=== PATIENT | female | born 1995 | race Caucasian/White ===

== ENCOUNTER 2021-03-04 11:17 | Inpatient (IN) | payer BC, SELFPAY ==
[2021-03-04] VITALS (112 sets, daily range): BP systolic 117–185; BP diastolic 66–130; PULSE 51–92; RESP 12–18; TEMP 36.1–36.7; O2SAT 80–98; BMI 41.3
[2021-03-04 11:16] LABS: Hematocrit 32.7 % (37-47); Hemoglobin 11.1 g/dL (12.0-15.0); Mean Corp Hgb Conc 33.9 g/dL (32-36); Mean Corpuscular Hgb 29.1 pg (27.0-32.0); Mean Corpuscular Volume 85.6 fL (81-99); Mean Platelet Vol. 10.8 fl (6.2-12.0); Platelet Count 198 K/mm3 (150-450); RBC Distribution Width CV 13.6 % (11.6-14.6); RBC Distribution Width SD 42.1 fl (35.1-43.9); Red Blood Count 3.82 M/mm3 (4.2-5.4); White Blood Count 8.1 K/mm3 (4.4-11.0)
[2021-03-04 11:29] LABS: AST(SGOT) 28 U/L (15-37); Alanine Aminotransfer ALT/SGPT 22 U/L (13-56); Creatinine, Serum 0.71 mg/dL (0.55-1.02); EST Glomerular Filtration Rate 105 mL/min (>60); Est Glom Filt Rate - Afr Amer 127 mL/min (>60); Estimated Creatinine Clearance 111.42 ml/min; Protein, Urine (Random) 130.1 mg/dL (<11.9); Protein:Creat Ratio 2059 mg/g CRE (0-200); Uric Acid 6.8 mg/dL (2.6-6.0)
[2021-03-04] MEDS: Labetalol (Prefilled) 20 MG/4 ML IV (11:41)
[2021-03-04] MEDS: Magnesium Sulfate 4gm/100mL 4 GM/100 ML IV.SOLN. IV (11:46)
[2021-03-04] MEDS: Lactated Ringers 1,000 ML 15 ML IV (11:52)
[2021-03-04] MEDS: Magnesium Sulfate 4gm/100mL 2 GM/50 ML IV.SOLN. IV (12:04)
[2021-03-04] MEDS: Magnesium Sulfate 20 GM/500 ML BAG IV ×2 (12:16→22:52)
[2021-03-04] MEDS: miSOPROStol 25 MCG TABLET VAGINAL (12:37)
[2021-03-04] MEDS: Labetalol (Prefilled) 20 MG/4 ML 40 MG IV (12:52)
[2021-03-04] MEDS: Labetalol 100 MG/20 ML Vial 80 MG IV (13:22)
[2021-03-04] MEDS: hydrALAZINE 20 MG/ML Vial 10 MG IV (13:47)
[2021-03-04] MEDS: hydrALAZINE 10 MG Tablet 20 MG PO ×2 (15:12→21:31)
[2021-03-04] MEDS: NIFEdipine 10 MG Capsule PO (15:59)
[2021-03-04] MEDS: Acetaminophen 500 MG Tablet PO (16:00)
--- NOTE | 2021-03-04 17:07 | HP.PCM.OB_ITS ---
HPI - General General Date of Admission: 03/04/21 Date of Service: 03/04/21 Chief Complaint: high blood pressure HPI Narrative ALEXIA GAGE, 25-year-old 1 para 0 who presents at 36 weeks with EDC of 04/01/2021 with complaint of high blood pressure. She was seen in the office today and noted to have significantly elevated blood pressure. She was sent to labor and delivery for evaluation. She had a mild headache earlier it was decreased with Tylenol. She denies any visual changes or epigastric pain. She is had some significant edema. Maternal Data Information Final JHONNY: 04/01/21 Gestational age: 34 PFSH PFSH Home Medications aspirin [Aspir-Low] 81 mg PO DAILY 03/04/21 [History Last Taken 03/03/21] [id number] [] 1 tab PO DAILY 03/04/21 [History Last Taken Unknown] Allergy/AdvReac Type Severity Reaction Status Date / Time No Known Allergies Allergy Verified 03/04/21 11:07 Social History Smoking Status: Former smoker History Elective abortions Hx Para 0 Spontaneous abortions Hx # Term Pregnancies Ectopic pregnancies Hx # Pregnancies Multiple births # of living children ROS Constitutional Constitutional: Denies fatigue, fever(s) or malaise Eyes Eyes: Denies change in vision ENT HEENT: Reports headache(s); Denies dizziness Cardiovascular Cardiovascular: Denies chest pain, dyspnea or lightheadedness Respiratory/Chest Respiratory/Chest: Denies cough or dyspnea Gastrointestinal Gastrointestinal: Denies change in bowel habits Genitourinary Genitourinary: Denies burning urination or genital lesions Integumentary Integumentary: Denies rash Neurologic Neurologic: Denies confusion, dizziness, headache(s), numbness or weakness Vital Signs Vital Signs Vital Signs: 03/04/21 11:15 03/04/21 11:16 03/04/21 11:29 Temperature Temperature Source Pulse Rate 54 L 51 L 54 L Respiratory Rate Respiratory Effort Respiratory Depth Respiratory Pattern Blood Pressure 185/107 H 169/99 H 160/100 H Blood Pressure Mean BP Systolic 185 169 160 BP Diastolic 107 99 100 Blood Pressure Source Blood Pressure Position Blood Pressure Location Pulse Ox Oxygen Delivery Method 03/04/21 11:49 03/04/21 11:54 03/04/21 11:55 Temperature Temperature Source Pulse Rate 58 L 60 60 Respiratory Rate 14 Respiratory Effort Normal Respiratory Depth Normal Respiratory Pattern Normal Blood Pressure 145/91 H Blood Pressure Mean 109 BP Systolic 145 BP Diastolic 91 Blood Pressure Source Monitor Blood Pressure Position Blood Pressure Location Pulse Ox 96 96 97 Oxygen Delivery Method Room Air 03/04/21 11:59 03/04/21 12:04 03/04/21 12:05 Temperature Temperature Source Pulse Rate 64 61 Respiratory Rate 14 Respiratory Effort Respiratory Depth Respiratory Pattern Blood Pressure 158/97 H Blood Pressure Mean 117 BP Systolic 158 BP Diastolic 97 Blood Pressure Source Monitor Blood Pressure Position Blood Pressure Location Pulse Ox 96 95 97 Oxygen Delivery Method Room Air 03/04/21 12:09 03/04/21 12:11 03/04/21 12:14 Temperature Temperature Source Pulse Rate 63 66 60 Respiratory Rate Respiratory Effort Normal Respiratory Depth Respiratory Pattern Blood Pressure 143/95 H Blood Pressure Mean BP Systolic 143 BP Diastolic 95 Blood Pressure Source Blood Pressure Position Blood Pressure Location Pulse Ox 96 94 96 Oxygen Delivery Method 03/04/21 12:15 03/04/21 12:19 03/04/21 12:24 Temperature Temperature Source Pulse Rate 66 65 55 L Respiratory Rate 14 Respiratory Effort Respiratory Depth Respiratory Pattern Blood Pressure 143/95 H 155/104 H Blood Pressure Mean 111 BP Systolic 155 BP Diastolic 104 Blood Pressure Source Monitor Blood Pressure Position Supine Blood Pressure Location Right Forearm Pulse Ox 97 97 Oxygen Delivery Method Room Air 03/04/21 12:25 03/04/21 12:26 03/04/21 12:29 Temperature Temperature Source Pulse Rate 55 L 76 Respiratory Rate 14 Respiratory Effort Respiratory Depth Respiratory Pattern Blood Pressure 155/104 H Blood Pressure Mean 121 BP Systolic BP Diastolic Blood Pressure Source Monitor Blood Pressure Position Semi-Fowlers Blood Pressure Location Right Arm Pulse Ox 97 80 96 Oxygen Delivery Method Room Air 03/04/21 12:34 03/04/21 12:35 03/04/21 12:39 Temperature Temperature Source Pulse Rate 54 L 61 60 Respiratory Rate 16 Respiratory Effort Normal Respiratory Depth Respiratory Pattern Blood Pressure 159/102 H 159/102 H Blood Pressure Mean 121 BP Systolic 159 BP Diastolic 102 Blood Pressure Source Monitor Blood Pressure Position Supine Blood Pressure Location Pulse Ox 96 97 97 Oxygen Delivery Method Room Air 03/04/21 12:40 03/04/21 12:44 03/04/21 12:45 Temperature 97.8 F Temperature Source Temporal Pulse Rate 73 56 L 56 L Respiratory Rate Respiratory Effort Respiratory Depth Respiratory Pattern Blood Pressure 162/91 H Blood Pressure Mean BP Systolic 162 BP Diastolic 91 Blood Pressure Source Blood Pressure Position Blood Pressure Location Pulse Ox 92 97 Oxygen Delivery Method 03/04/21 12:49 03/04/21 12:54 03/04/21 12:59 Temperature Temperature Source Pulse Rate 68 61 68 Respiratory Rate Respiratory Effort Respiratory Depth Respiratory Pattern Blood Pressure Blood Pressure Mean BP Systolic BP Diastolic Blood Pressure Source Blood Pressure Position Blood Pressure Location Pulse Ox 95 96 97 Oxygen Delivery Method 03/04/21 13:04 03/04/21 13:09 03/04/21 13:11 Temperature Temperature Source Pulse Rate 65 59 L 62 Respiratory Rate Respiratory Effort Respiratory Depth Respiratory Pattern Blood Pressure 159/95 H Blood Pressure Mean BP Systolic 159 BP Diastolic 95 Blood Pressure Source Blood Pressure Position Blood Pressure Location Pulse Ox 96 97 Oxygen Delivery Method 03/04/21 13:12 03/04/21 13:14 03/04/21 13:19 Temperature Temperature Source Pulse Rate 61 64 63 Respiratory Rate 16 16 Respiratory Effort Respiratory Depth Respiratory Pattern Blood Pressure 159/95 H 162/102 H Blood Pressure Mean 116 122 BP Systolic 162 BP Diastolic 102 Blood Pressure Source Monitor Monitor Blood Pressure Position Blood Pressure Location Pulse Ox 97 97 97 Oxygen Delivery Method Room Air Room Air 03/04/21 13:24 03/04/21 13:29 03/04/21 13:34 Temperature Temperature Source Pulse Rate 61 67 68 Respiratory Rate Respiratory Effort Respiratory Depth Respiratory Pattern Blood Pressure Blood Pressure Mean BP Systolic BP Diastolic Blood Pressure Source Blood Pressure Position Blood Pressure Location Pulse Ox 96 96 97 Oxygen Delivery Method 03/04/21 13:41 03/04/21 13:46 03/04/21 13:47 Temperature Temperature Source Pulse Rate 57 L 60 60 Respiratory Rate 16 Respiratory Effort Normal Respiratory Depth Normal Respiratory Pattern Normal Blood Pressure 160/101 H 160/101 H Blood Pressure Mean 120 BP Systolic 160 BP Diastolic 101 Blood Pressure Source Monitor Blood Pressure Position Blood Pressure Location Pulse Ox 97 96 Oxygen Delivery Method Room Air 03/04/21 13:51 03/04/21 13:56 03/04/21 14:01 Temperature Temperature Source Pulse Rate 61 68 68 Respiratory Rate Respiratory Effort Respiratory Depth Respiratory Pattern Blood Pressure Blood Pressure Mean BP Systolic BP Diastolic Blood Pressure Source Blood Pressure Position Blood Pressure Location Pulse Ox 97 97 97 Oxygen Delivery Method 03/04/21 14:06 03/04/21 14:11 03/04/21 14:13 Temperature Temperature Source Pulse Rate 77 65 65 Respiratory Rate Respiratory Effort Respiratory Depth Respiratory Pattern Blood Pressure 157/130 H Blood Pressure Mean BP Systolic 157 BP Diastolic 130 Blood Pressure Source Blood Pressure Position Blood Pressure Location Pulse Ox 97 96 Oxygen Delivery Method 03/04/21 14:16 03/04/21 14:21 03/04/21 14:26 Temperature Temperature Source Pulse Rate 70 62 59 L Respiratory Rate 14 Respiratory Effort Respiratory Depth Respiratory Pattern Blood Pressure 140/79 H Blood Pressure Mean 99 BP Systolic 140 BP Diastolic 79 Blood Pressure Source Monitor Blood Pressure Position Blood Pressure Location Pulse Ox 97 96 96 Oxygen Delivery Method Venturi Mask 03/04/21 14:28 03/04/21 14:31 03/04/21 14:36 Temperature Temperature Source Pulse Rate 60 60 65 Respiratory Rate 14 Respiratory Effort Normal Respiratory Depth Normal Respiratory Pattern Normal Blood Pressure 142/97 H 142/97 H Blood Pressure Mean 112 BP Systolic 142 BP Diastolic 97 Blood Pressure Source Monitor Blood Pressure Position Blood Pressure Location Pulse Ox 97 97 Oxygen Delivery Method Room Air 03/04/21 14:38 03/04/21 14:41 03/04/21 14:46 Temperature Temperature Source Pulse Rate 62 69 60 Respiratory Rate 14 Respiratory Effort Normal Respiratory Depth Normal Respiratory Pattern Normal Blood Pressure 142/87 H Blood Pressure Mean 105 BP Systolic 142 BP Diastolic 87 Blood Pressure Source Monitor Blood Pressure Position Blood Pressure Location Pulse Ox 98 96 96 Oxygen Delivery Method Room Air 03/04/21 14:48 03/04/21 14:51 03/04/21 14:56 Temperature Temperature Source Pulse Rate 60 64 63 Respiratory Rate 16 Respiratory Effort Respiratory Depth Respiratory Pattern Blood Pressure 140/91 H Blood Pressure Mean 107 BP Systolic 140 BP Diastolic 91 Blood Pressure Source Monitor Blood Pressure Position Blood Pressure Location Pulse Ox 98 97 98 Oxygen Delivery Method Room Air 03/04/21 14:58 03/04/21 15:05 03/04/21 15:07 Temperature Temperature Source Pulse Rate 61 77 63 Respiratory Rate 16 Respiratory Effort Respiratory Depth Respiratory Pattern Blood Pressure 132/86 H Blood Pressure Mean 101 BP Systolic 132 BP Diastolic 86 Blood Pressure Source Monitor Blood Pressure Position Blood Pressure Location Pulse Ox 97 97 90 Oxygen Delivery Method Room Air 03/04/21 15:08 03/04/21 15:09 03/04/21 15:10 Temperature Temperature Source Pulse Rate 65 75 71 Respiratory Rate 16 Respiratory Effort Respiratory Depth Respiratory Pattern Blood Pressure 158/97 H 158/97 H Blood Pressure Mean 117 BP Systolic 158 BP Diastolic 97 Blood Pressure Source Monitor Blood Pressure Position Blood Pressure Location Pulse Ox 97 96 Oxygen Delivery Method Room Air 03/04/21 15:12 03/04/21 15:15 03/04/21 15:20 Temperature Temperature Source Pulse Rate 67 64 65 Respiratory Rate Respiratory Effort Respiratory Depth Respiratory Pattern Blood Pressure 158/97 H Blood Pressure Mean BP Systolic BP Diastolic Blood Pressure Source Blood Pressure Position Blood Pressure Location Pulse Ox 97 96 Oxygen Delivery Method 03/04/21 15:24 03/04/21 15:25 03/04/21 15:30 Temperature Temperature Source Pulse Rate 60 61 67 Respiratory Rate 16 Respiratory Effort Respiratory Depth Respiratory Pattern Blood Pressure 149/96 H 149/96 H Blood Pressure Mean 113 BP Systolic 149 BP Diastolic 96 Blood Pressure Source Monitor Blood Pressure Position Blood Pressure Location Pulse Ox 96 98 Oxygen Delivery Method Room Air 03/04/21 15:35 03/04/21 15:40 03/04/21 15:41 Temperature Temperature Source Pulse Rate 61 65 64 Respiratory Rate Respiratory Effort Respiratory Depth Respiratory Pattern Blood Pressure 169/97 H 156/97 H Blood Pressure Mean BP Systolic 169 156 BP Diastolic 97 97 Blood Pressure Source Blood Pressure Position Blood Pressure Location Pulse Ox 96 96 Oxygen Delivery Method 03/04/21 15:43 03/04/21 15:45 03/04/21 15:50 Temperature Temperature Source Pulse Rate 67 64 78 Respiratory Rate 18 Respiratory Effort Respiratory Depth Respiratory Pattern Blood Pressure 156/97 H Blood Pressure Mean 116 BP Systolic BP Diastolic Blood Pressure Source Monitor Blood Pressure Position Blood Pressure Location Pulse Ox 98 97 96 Oxygen Delivery Method Room Air 03/04/21 15:56 03/04/21 15:59 03/04/21 16:00 Temperature 97.8 F Temperature Source Temporal Pulse Rate 63 62 Respiratory Rate 15 Respiratory Effort Respiratory Depth Respiratory Pattern Blood Pressure 165/98 H 156/95 H 156/95 H Blood Pressure Mean 120 115 BP Systolic 165 156 BP Diastolic 98 95 Blood Pressure Source Monitor Monitor Blood Pressure Position Blood Pressure Location Pulse Ox 98 97 Oxygen Delivery Method Room Air Room Air 03/04/21 16:01 03/04/21 16:06 03/04/21 16:11 Temperature Temperature Source Pulse Rate 61 62 61 Respiratory Rate Respiratory Effort Respiratory Depth Respiratory Pattern Blood Pressure Blood Pressure Mean BP Systolic BP Diastolic Blood Pressure Source Blood Pressure Position Blood Pressure Location Pulse Ox 97 96 97 Oxygen Delivery Method 03/04/21 16:15 03/04/21 16:16 03/04/21 16:17 Temperature Temperature Source Pulse Rate 88 89 Respiratory Rate Respiratory Effort Respiratory Depth Respiratory Pattern Blood Pressure 122/66 H Blood Pressure Mean BP Systolic 122 BP Diastolic 66 Blood Pressure Source Blood Pressure Position Blood Pressure Location Pulse Ox 94 93 Oxygen Delivery Method 03/04/21 16:19 03/04/21 16:20 03/04/21 16:21 Temperature Temperature Source Pulse Rate 92 91 87 Respiratory Rate 16 Respiratory Effort Respiratory Depth Respiratory Pattern Blood Pressure 122/66 H Blood Pressure Mean 84 BP Systolic BP Diastolic Blood Pressure Source Monitor Blood Pressure Position Blood Pressure Location Pulse Ox 94 94 93 Oxygen Delivery Method Room Air 03/04/21 16:26 03/04/21 16:31 03/04/21 16:32 Temperature Temperature Source Pulse Rate 86 79 80 Respiratory Rate 16 16 Respiratory Effort Respiratory Depth Respiratory Pattern Blood Pressure 126/71 H 128/72 H 128/72 H Blood Pressure Mean 89 90 BP Systolic 126 128 BP Diastolic 71 72 Blood Pressure Source Monitor Monitor Blood Pressure Position Blood Pressure Location Pulse Ox 93 94 94 Oxygen Delivery Method Room Air Room Air 03/04/21 16:36 03/04/21 16:41 03/04/21 16:46 Temperature Temperature Source Pulse Rate 74 80 75 Respiratory Rate Respiratory Effort Respiratory Depth Respiratory Pattern Blood Pressure Blood Pressure Mean BP Systolic BP Diastolic Blood Pressure Source Blood Pressure Position Blood Pressure Location Pulse Ox 95 95 94 Oxygen Delivery Method 03/04/21 16:51 03/04/21 16:56 03/04/21 17:01 Temperature Temperature Source Pulse Rate 77 71 76 Respiratory Rate Respiratory Effort Respiratory Depth Respiratory Pattern Blood Pressure Blood Pressure Mean BP Systolic BP Diastolic Blood Pressure Source Blood Pressure Position Blood Pressure Location Pulse Ox 95 94 96 Oxygen Delivery Method 03/04/21 17:03 Temperature Temperature Source Pulse Rate 77 Respiratory Rate Respiratory Effort Respiratory Depth Respiratory Pattern Blood Pressure 149/89 H Blood Pressure Mean BP Systolic 149 BP Diastolic 89 Blood Pressure Source Blood Pressure Position Blood Pressure Location Pulse Ox Oxygen Delivery Method Weight Weight: 116.3 kg Body Mass Index (BMI) 41.3 Physical Exam Narrative Ext 2+ edema Const alert and no apparent distress General Appearance: cooperative HEENT normocephalic Resp normal respiratory effort Cardio regular rate GI soft to palpation GI Narrative: gravid, nontender, appropriate for gestational age Extremity no calf tenderness General Extremity: edema Skin no wounds Rashes: No rashes noted Psych activity/motor behavior normal Labs Labs Labs: Blood Type O NEGATIVE Antibody Screen NEGATIVE Hct 32.7 % (37-47) L Hgb 11.1 g/dL (12.0-15.0) L Assessment & Plan (1) 36 weeks gestation of : PLAN: Patient with preeclampsia with severe features. Have initiated the hypertensive protocols. Maxed out on labetalol and needed IV hydralazine. Then given nifedipine. Now blood pressures more stable. However there is minimal variability in the heart rate with some decelerations. She is remote from delivery. I discussed with patient risk benefits and alternatives to a section. Recommend we proceed with section to expedite delivery due to her severe preeclampsia and difficulty controlling blood pressures. In addition fetus is already having D cells and we are not in active labor. Patient's quest ions were answered to her satisfaction she desires to proceed. Patient is on magnesium prophylaxis. (2) High-risk in third trimester: (3) Preeclampsia, severe: (4) Maternal obesity syndrome in third trimester: (5) Body mass index (BMI) of 40.1 to 44.9 in adult:
[2021-03-04] MEDS: Sodium Citrate/Citric Acid 30 ML UDC PO (17:09)
--- NOTE | 2021-03-04 18:00 | EX.PCM.OBRPT ---
Assessment & Plan (1) Body mass index (BMI) of 40.1 to 44.9 in adult: (2) Maternal obesity syndrome in third trimester: (3) Preeclampsia, severe: (4) High-risk in third trimester: (5) 36 weeks gestation of : Maternal Data Information Final JHONNY: 04/01/21 Gestational age: 36 0/7 Details Operative Information Date of Procedure: 03/04/21 Pre-Operative Diagnosis: severe preeclampsia, 36 weeks, decelerations Post-Operative Diagnosis: same Classification: JOSE ANGEL Procedure Type: low transverse activity assistant #1: Arely Floyd Type of Anesthesia: Spinal Anesthesiologist: Alber Melendrez Antibiotic Given: Ancef 2 grams IV x1 Drain: Kramer to straight drain Estimated Blood Loss: 900 Fluids Replaced: 1500 Procedure Start Time: 17:36 Procedure Stop Time: 18:06 Time of Delivery: 17:38 Findings Description of Procedure: The patient was taken to the operating room. She was prepped and draped in the dorsal supine position with a leftward tilt. A Pfannenstiel skin incision was made approximately 2 cm above the symphysis pubis and carried through to underlying layer fascia with the scalpel. The fascia was incised incised in the midline and extended laterally with t blunt dissection. The fascia was dissected off the rectus muscles superiorly with blunt dissection. The rectus muscles were in the midline and the peritoneum was entered [bluntly]. The peritoneal incision was stretched and the bladder blade was placed. The uterine incision was made in a low transverse fashion with the scalpel and extended superiorly and inferiorly with blunt dissection. [The amniotic membranes were ruptured bluntly and clear amniotic fluid returned]. The infant's head was brought to the incision in the flexed position and delivered without difficulty. The remainder of the infant was delivered with gentle traction and fundal pressure in the standard fashion. The mouth and nares were bulb suctioned. The cord was clamped and cut as the was stimulated. [Cord clamping was delayed]. The infant was handed off to the waiting nursing staff. The placenta was delivered with fundal massage and gentle traction in the standard fashion. The uterus was exteriorized and cleared of all clots and debris. [The cervix was dilated with a ring forcep]. The uterine incision was closed with #1 Vicryl in a running locked fashion. A second layer of the same suture was used in an imbricating fashion. Several 0 Vicryl [id number] stitch sutures were needed in the incision and some sinuses to obtain hemostasis. The incision was examined and was found to be hemostatic. The uterus was placed back into the peritoneal cavity and hemostasis was again confirmed. Some Shahla was placed over the incision. The rectus muscles were examined and any bleeding was Bovie cauterized. The parietal peritoneum and rectus muscles were closed en bloc with an 0 Vicryl running suture. The surgical teams outer gloves were then changed. The rectus fascia was examined and any bleeding was Bovie cauterized and the rectus fascia was closed with 0 PDS suture in a running standard fashion. The subcutaneous tissue was examining and any bleeding was Bovie cauterized. The subcutaneous tissue was reapproximated with 3-0 Vicryl suture. The skin was closed in a subcuticular fashion by the CREDIT CONTROL OFFICER with me present in the labor and delivery suite. I performed the remainder of the procedure with assistance. All sponge, lap, and needle counts were correct. The patient was taken to her room for recovery in a stable condition. Amniotic Membrane Rupture Type: Artificial Amniotic Fluid Description: Clear Placental Delivery Description: Expressed Placenta Disposition: [facility] Cord Vessel Description: 3 Vessels Cord Entanglement: Around neck x 1, loose Nuchal Cord Compression: Without compression Cord Gases: ABG and VBG Infant A Gender: Male (Juanpablo 5lb 14 oz) (1 minute): 8 (5 minute): 9 Delayed Cord Clamping: Yes Complications Complications: none Admit VTE Documentation VTE Present on Admission: Yes VTE Mechan Device Prophylaxis: SCD's VTE Pharm Prophylaxis Ordered: Yes
[2021-03-04] MEDS: Oxytocin 30 units/NS 500 ml 30 UNITS/500 ML IV.SOLN 167 UNITS IV (18:30)
[2021-03-04] MEDS: Ketorolac 30 MG/ML Syringe IV (19:06)
--- NOTE | 2021-03-04 20:20 | NURSING ---
report given to franchesca WELSH.
[2021-03-04] MEDS: Acetaminophen 500 MG Tablet 1000 MG PO (21:30)
[2021-03-04] MEDS: Lactated Ringers 1,000 ML 100 ML IV (21:32)
[2021-03-04] MEDS: Ondansetron 4 MG/2 ML Vial IV (22:52)
[2021-03-04] MEDS: 0.9% Saline Lock 10 ML Syringe IV (22:52)
[2021-03-05] VITALS (27 sets, daily range): BP systolic 125–187; BP diastolic 76–102; PULSE 52–90; RESP 16–18; TEMP 36.1–36.9; O2SAT 87–98
[2021-03-05] MEDS: Ketorolac 30 MG/ML Syringe IV ×3 (01:33→14:04)
[2021-03-05] MEDS: proCHLORPERazine 10 MG/2 ML Vial IV ×2 (01:54→10:16)
[2021-03-05] MEDS: 0.9% Saline Lock 10 ML Syringe IV ×2 (01:54→07:54)
[2021-03-05] MEDS: Acetaminophen 500 MG Tablet 1000 MG PO ×4 (04:40→22:09)
[2021-03-05] MEDS: Enoxaparin 40 MG/0.4 ML Syringe SC ×2 (05:28→17:03)
[2021-03-05 05:43] LABS: Hematocrit 29.6 % (37-47); Hemoglobin 9.8 g/dL (12.0-15.0); Mean Corp Hgb Conc 33.1 g/dL (32-36); Mean Corpuscular Hgb 29.1 pg (27.0-32.0); Mean Corpuscular Volume 87.8 fL (81-99); Mean Platelet Vol. 10.3 fl (6.2-12.0); Platelet Count 206 K/mm3 (150-450); RBC Distribution Width SD 44.1 fl (35.1-43.9); Red Blood Count 3.37 M/mm3 (4.2-5.4); White Blood Count 11.2 K/mm3 (4.4-11.0)
[2021-03-05] MEDS: hydrALAZINE 10 MG Tablet 20 MG PO ×2 (06:36→14:04)
[2021-03-05] MEDS: Lactated Ringers 1,000 ML 100 ML IV ×2 (06:54→16:56)
[2021-03-05] MEDS: Magnesium Sulfate 20 GM/500 ML BAG IV (08:17)
--- NOTE | 2021-03-05 08:50 | PCM.PN.OB ---
Subjective Subjective Denies complaints other than feels off from the Mag. She is slowly feeling better. Objective Data Objective Data Vital Signs: Vital Signs Temp Pulse Resp BP Pulse Ox 98.2 F 88 16 138/82 H 98 03/05/21 08:00 03/05/21 08:00 03/05/21 08:00 03/05/21 08:00 03/05/21 08:00 Oxygen Delivery Method Room Air Weight: 256 lb 6.362 oz Body Mass Index (BMI) 41.3 Intake & Output: Intake and Output for Last 24 Hours 03/03/21 03/04/21 03/05/21 23:59 23:59 23:59 Intake Total 2480.5 / 2480.5 1707.50 / 1707.50 Output Total 1800 / 1800 350 / 350 Balance 680.5 / 680.5 1357.50 / 1357.50 Lab / Micro Data Result Diagrams: 03/05/21 05:33 03/04/21 11:05 Labs: Laboratory Results - last 24 hr 03/04/21 11:05: WBC 8.1, RBC 3.82 L, Hgb 11.1 L, Hct 32.7 L, MCV 85.6, MCH 29.1, MCHC 33.9, RDW Std Deviation 42.1, RDW Coeff of Katharine 13.6, Plt Count 198, MPV 10.8 03/04/21 11:05: U Random Total Protein 130.1 H, Urine Creatinine 63.20, Protein/Creatinin Ratio 2059 H 03/04/21 11:05: Creatinine 0.71, Estim Creat Clear Calc 111.42, Est GFR (MDRD) Af Amer 127, Est GFR (MDRD) Non-Af 105, Uric Acid 6.8 H, AST 28, ALT 22 03/04/21 11:05: Blood Type O NEGATIVE, Antibody Screen TNP 03/04/21 11:05: Antibody Screen NEGATIVE 03/05/21 05:33: WBC 11.2 H, RBC 3.37 L, Hgb 9.8 L, Hct 29.6 L, MCV 87.8, MCH 29.1, MCHC 33.1, RDW Std Deviation 44.1 H, RDW Coeff of Katharine 14.0, Plt Count 206, MPV 10.3 Micro: Microbiology 12/16/21 11:10 Nasal Secretion SARS-CoV-2 Antigen (Rapid) - Final Physical Exam Const alert, oriented x3 and no apparent distress HEENT normocephalic GI soft to palpation, non-tender and non-distended GI Narrative: fundus firm, mid & below umbilicus Incision - bandage c/d/i Extremity normal to inspection and no calf tenderness Assessment & Plan (1) Preeclampsia, severe: COMMENT: POD#1 PLAN: Heme - HDS, cbc reviewed & hb=9.8 ID - AF, no signs infection Severe prE - continue mag for 24 hours. Bp's well controlled on TID hydralazine GI - ADAT - - no issues Routine PP care
[2021-03-05] MEDS: Senna/Docusate Sodium 1 Tablet PO (10:57)
[2021-03-05] MEDS: NIFEdipine 30 MG Tablet PO (18:06)
[2021-03-05] MEDS: NIFEdipine 10 MG Capsule 20 MG PO (20:44)
[2021-03-05] MEDS: Naproxen 500 MG Tablet PO (22:06)
[2021-03-05] MEDS: hydrALAZINE 10 MG Tablet 40 MG PO (22:07)
[2021-03-06] VITALS (17 sets, daily range): BP systolic 137–168; BP diastolic 81–99; PULSE 69–113; RESP 16–20; TEMP 36.7–37.2; O2SAT 94–98
[2021-03-06] MEDS: oxyCODONE 5 MG Tablet PO (01:44)
[2021-03-06] MEDS: Acetaminophen 500 MG Tablet 1000 MG PO ×4 (04:17→22:20)
[2021-03-06] MEDS: Enoxaparin 40 MG/0.4 ML Syringe SC ×2 (06:08→18:05)
[2021-03-06] MEDS: hydrALAZINE 10 MG Tablet 40 MG PO ×2 (06:08→14:12)
[2021-03-06] MEDS: Naproxen 500 MG Tablet PO ×3 (06:08→22:20)
--- NOTE | 2021-03-06 08:09 | PCM.PN.OB ---
Subjective Subjective Patient seen at bedside, doing well. Patient reports good pain control. Mild lochia. Patient reports bottlefeeding. Denies any headaches, visual changes, chest pain, shortness of breath. Voiding without difficulty. Passing flatus. Tolerating regular diet. Objective Data Objective Data Vital Signs: Vital Signs Temp Pulse Resp BP Pulse Ox 98.4 F 69 18 148/94 H 94 03/06/21 04:15 03/06/21 06:08 03/06/21 04:15 03/06/21 06:08 03/06/21 04:15 Oxygen Delivery Method Room Air Weight: 116.3 kg Body Mass Index (BMI) 41.3 Intake & Output: Intake and Output for Last 24 Hours 03/04/21 03/05/21 03/06/21 23:59 23:59 23:59 Intake Total 2480.5 / 2480.5 3599.17 / 3599.17 Output Total 1800 / 1800 1750 / 1750 Balance 680.5 / 680.5 1849.17 / 1849.17 Lab / Micro Data Result Diagrams: 03/05/21 05:33 03/04/21 11:05 Micro: Microbiology 03/04/21 11:10 Nasal Secretion SARS-CoV-2 Antigen (Rapid) - Final Physical Exam Narrative Dressing is dry and intact. Fundus is firm. +1 lower extremity edema. Const alert and oriented x3 General Appearance: cooperative HEENT normocephalic Neck General: normal visual inspection GI soft to palpation and non-distended GI Narrative: Fundus firm Extremity normal to inspection and no calf tenderness Skin no rashes or lesions noted Neuro oriented x3 and CN's II-XII intact bilaterally Psych mental status grossly normal Assessment & Plan (1) Preeclampsia, severe: QUALIFIERS: Qualified Code(s): O14.13 - Severe pre-eclampsia, third trimester COMMENT: POD#1 (2) Body mass index (BMI) of 40.1 to 44.9 in adult: (3) Delivery by section: PLAN: POD# 2 , PRE E with severe features Routine care pain mgmt monitor VS- BPs controlled curently ambulation continue PO meds Procardia 30xl daily and hydralazine 40mg tid
[2021-03-06] MEDS: NIFEdipine 30 MG Tablet PO (08:22)
[2021-03-06] MEDS: Senna/Docusate Sodium 1 Tablet PO (10:05)
[2021-03-06] MEDS: hydrALAZINE 50 MG Tablet PO (18:05)
[2021-03-07] VITALS (19 sets, daily range): BP systolic 138–160; BP diastolic 76–103; PULSE 65–109; RESP 16–18; TEMP 36.6–37.1; O2SAT 96–98
[2021-03-07] MEDS: hydrALAZINE 50 MG Tablet PO ×4 (00:02→18:24)
[2021-03-07] MEDS: Acetaminophen 500 MG Tablet 1000 MG PO ×4 (04:34→22:01)
[2021-03-07] MEDS: Enoxaparin 40 MG/0.4 ML Syringe SC ×2 (06:25→16:39)
[2021-03-07] MEDS: Naproxen 500 MG Tablet PO ×2 (06:25→16:42)
--- NOTE | 2021-03-07 08:44 | NURSING ---
Dr. Duggan updated on patient's BP through the night. Order received to increase procardia xl to 60mg. Dr. Duggan states that she will consult with cardiology to see patient tomorrow.
[2021-03-07] MEDS: Senna/Docusate Sodium 1 Tablet PO (09:42)
[2021-03-07] MEDS: NIFEdipine 60 MG Tablet PO (09:43)
--- NOTE | 2021-03-07 13:20 | NURSING ---
Dr. Elissa Duggan calls at this time. Updated her on recent BP's and previous BP over patient's stay. States that she is ordering a consult for cardiology and will send them a page.
--- NOTE | 2021-03-07 16:26 | EKG12_ITS ---
Test Reason : Blood Pressure : / mmHG Vent. Rate : 111 BPM Atrial Rate : 111 BPM P-R Int : 134 ms QRS Dur : 068 ms QT Int : 346 ms P-R-T Axes : 047 -12 018 degrees QTc Int : 470 ms Sinus tachycardia Otherwise normal ECG No previous ECGs available Confirmed by IVONE PATEL, YELENA ([id number]), photography editor DESTINEY STUART ([id number]) on 03/09/2021 8:42:27 AM Referred By: Bridgett Garcia Confirmed By:YELENA WISEMAN MD
--- NOTE | 2021-03-07 16:35 | NURSING ---
Radiation Control Technician, Dr. Alaniz here to assess patient. Orders received for blood work and ECG.
--- NOTE | 2021-03-07 17:01 | CON.PCM.CA_ITS ---
Assessment & Plan Assessment/Plan (1) HTN (hypertension): PLAN: The patient does appear to have evidence of hypertension at this time. It has been attributed to a diagnosis of preeclampsia as the patient states she has no diagnosis of hypertension prior to her . At the present time she is now status post without obvious adverse event/complication. The patient is going to have additional diagnostic studies performed such as a BMP, magnesium level, and TSH level. She will also have further cardiovascular studies performed which will include a transthoracic echocardiogram to assess her cardiac anatomy and physiology. It may not be unreasonable to perform a chest x-ray as well. She has been placed on medical therapy as noted above. Depending upon her blood pressure response, if her medications need to be increased, it appears that she can increase her nifedipine XL to 90 mg p.o. daily and her hydralazine/Apresoline to 75 mg p.o. every 6 hours. Depending upon her response to such medications, if her blood pressure remains elevated, then she may need consideration for other medications which would require input from her [facility] [facility] physicians as the patient is currently breast-feeding. (2) Preeclampsia, severe: QUALIFIERS: Qualified Code(s): O14.13 - Severe pre-eclampsia, third trimester PLAN: Again the patient was diagnosed with preeclampsia. She is now status post without obvious adverse events/complication. She states since her she has been noting increased urinary output and her lower extremity edema has decreased. She is going to continue her noninvasive evaluation. She will continue medical therapy as noted above. (3) Delivery by section: PLAN: Based upon the diagnosis of preeclampsia the patient underwent a C- section. It is noted overall that since her her blood pressures, with the assistance of her medications, have been gradually improving. She will continue her noninvasive valuation medical therapy. Addt'l Comments The patient's case has been discussed with the patient, her spouse, and with Dr. Duggan. This note was generated using a voice recognition system and there may be incorrect words, spelling or punctuation that were not noted when reviewing the office note prior to saving. HPI Consult Data Date of Consult: 03/07/21 HPI Narrative HPI Narrative: ALEXIA GAGE, is a 25 year old white female who presents for evaluation of hypertension in the setting of preeclampsia now status post C- section. The patient states that she has been healthy and does not believe she has carried any medical diagnoses nor has she required any outpatient diagnostic studies/procedures nor has she required any prescription medications. She has been going through without any obvious concerns or complications best of her knowledge until recently. Recently she was diagnosed with preeclampsia. She subsequently underwent evaluation and care by her [facility] team which led to a . She has been followed in the hospital by her [facility] team and there has been concern of her hypertension. She was placed on medical therapy which included the addition of a dihydropyridine inhibitor-nifedipine as well as a vasodilator-hydralazine/Apresoline. Her blood pressures were reported as improving overall. She has denied any ongoing issues of chest discomfort. There is been no obvious episodes of acute orthopnea or PND suspicious for acute CHF or pulmonary edema. She denies palpitations or rapid heart rates. There has been no near syncope or syncope. She does state that during the later phase of her she did have increasing lower extremity peripheral pitting edema. She notes since her C- section she feels she has been putting out increased amounts of fluid and her lower extremity edema has decreased. Her blood pressures were noted to be elevated including diastolic pressures greater than 100 mmHg. Her medications have been adjusted. Overall both her systolic and her diastolic pressures have improved. [facility] Medical History (Updated 03/07/21 @ 17:[address] Morris Alaniz MD) HTN (hypertension) Pre-eclampsia Home Medications aspirin [Aspir-Low] 81 mg PO DAILY 03/04/21 [History Last Taken 03/03/21] [id number] [] 1 tab PO DAILY 03/04/21 [History Last Taken Unknown] Allergy/AdvReac Type Severity Reaction Status Date / Time No Known Allergies Allergy Verified 03/04/21 19:49 Surgical History (Updated 03/06/21 @ 08:[address] Santa Vallecillo MD) History of surgery Social History Smoking Status: Former smoker ROS Constitutional Constitutional: Reports as per HPI Eyes Eyes: Reports as per HPI ENT HEENT: Reports as per HPI Cardiovascular Cardiovascular: Reports edema Respiratory/Chest Respiratory/Chest: Reports as per HPI Gastrointestinal Gastrointestinal: Reports as per HPI Genitourinary Genitourinary: Reports as per HPI Musculoskeletal Musculoskeletal: Reports as per HPI Physical Exam Const alert, oriented x3, no apparent distress and healthy appearing Orientation / Consciousness: awake HEENT normocephalic, head/scalp atraumatic and hearing grossly normal bilaterally Eyes PERRL, EOMs intact bilaterally and conjunctivae normal Neck full ROM, supple and no JVD Resp clear to auscultation bilaterally Cardio regular rhythm, S1 normal heart sound and S2 normal heart sound Rate: tachycardic GI normal to inspection, nondistended, normoactive bowel sounds Extremity General Extremity: edema bilateral lower extremity Details: trace Skin no rashes or lesions noted Neuro oriented x3, moves all extremities, no focal motor deficits and no sensory deficits noted Psych mental status grossly normal Risk Stratification Risk Stratification Applicable: No Procedure Criteria Type of Procedure Procedure Type: Elective Elective Risks - COVID COVID Risk Discussion: The surgeon/proceduralist and patient have discussed in detail the risk of exposure to and/or potential harm posed by the COVID-19 virus with having a surgery/procedure at this time versus the risk of delaying the surgery/procedure. It is not possible to know either the risk of delaying the surgery or procedure or chance of getting an infection with perfect accuracy, but a joint decision was made between the patient and the surgeon/proceduralist to proceed at this time with the scheduled surgery/procedure as indicated on the consent form. Objective Data Vital Signs: Vital Signs Temp Pulse Resp BP Pulse Ox 97.9 F 88 16 155/76 H 96 03/07/21 15:43 03/07/21 15:43 03/07/21 15:43 03/07/21 15:43 03/07/21 12:29 Oxygen Delivery Method Room Air Weight: 256 lb 6.362 oz Body Mass Index (BMI) 41.3 Intake & Output: Intake and Output for Last 24 Hours 03/05/21 03/06/21 03/07/21 23:59 23:59 23:59 Intake Total 3599.17 / 3599.17 Output Total 1750 / 1750 Balance 1849.17 / 1849.17 Lab / Micro Data Result Diagrams: 03/05/21 05:33 03/07/21 16:50 Cardiology Labs/Tests EKG: Sinus tachycardia; poor R wave progression
--- NOTE | 2021-03-07 17:01 | ECHOD_ITS ---
Reason For Study: HTN Procedure This was a 2D Doppler, Color Flow transthoracic echocardiogram. The exam was of adequate technical quality. Exam performed portable in patient room. Left Ventricle Normal LV size. Mild concentric left ventricular hypertrophy. Left ventricular systolic function is normal. The estimated ejection fraction is 70 %. No evidence for diastolic dysfunction. No regional wall motion abnormalities noted. Right Ventricle Normal RV size. Normal systolic function. Atria Normal left atrium. Normal right atrium. No doppler evidence for ASD. Mitral Valve There is no mitral annular calcification. Normal mitral valve. Trivial mitral valve insufficiency. Tricuspid Valve Normal tricuspid valve. Trivial tricuspid valve insufficiency. Unable to estimate RV systolic pressure due to insufficient tricuspid regurgitant envelope. Aortic Valve Trisinus/trileaflet aortic valve. Normal aortic valve. Pulmonic Valve The pulmonic valve is not well visualized. Trivial pulmonic valve insufficiency. Great Vessels Normal sized aortic root. Pericardium/Pleural No pericardial effusion. MMode/2D Measurements & Calculations LVIDd: 4.9 cm IVSd: 1.4 cm Ao root diam: 3.2 cm LVIDs: 2.4 cm LVPWd: 1.3 cm FS: 51.6 % LAV(MOD-bp): 53.7 ml LA A4 area: 21.8 cm2 RA A4 area: 16.7 cm2 LAV(MOD-bp) Indexed: 24.2 ml/m2 LAV(MOD-sp2): 37.6 ml LAV(MOD-sp4): 63.4 ml Time Measurements MV dec time: 0.22 sec Doppler Measurements & Calculations MV E max chris: 120.9 cm/sec Lat Peak E' Chris: 14.8 cm/sec Med Peak E' Chris: 9.8 cm/sec MV A max chris: 97.1 cm/sec E/E' lat: 8.1 E/E' med: 12.3 MV E/A: 1.2 MV V2 max: 155.0 cm/sec MV P1/2t max chris: 156.0 cm/sec Ao V2 max: 177.0 cm/sec MV max P.6 mmHg MV P1/2t: 54.6 msec Ao max P.5 mmHg MV V2 mean: 81.6 cm/sec MV dec slope: 837.3 cm/sec2 MV mean P.2 mmHg MVA(P1/2t): 4.0 cm2 MV V2 VTI: 29.8 cm LV V1 max: 152.0 cm/sec PA V2 max: 133.9 cm/sec LV V1 max P.3 mmHg ECHO/Echo Complete Interpretation Summary Left ventricular systolic function is normal. The estimated ejection fraction is 70 %. Mild concentric left ventricular hypertrophy. Trivial mitral valve insufficiency. Trivial tricuspid valve insufficiency. Trivial pulmonic valve insufficiency. Unable to estimate RV systolic pressure due to insufficient tricuspid regurgita nt envelope. No evidence for diastolic dysfunction. Ordering Physician: Morris Alaniz Referring Physician: Bridgett Garcia Performed By: David Lantigua RCS
[2021-03-07 17:31] LABS: Anion Gap 8 (5-15); BUN 12 mg/dL (7-18); BUN/Creat Ratio 13.7 RATIO (10-20); Calcium,Total 8.7 mg/dL (8.5-10.1); Chloride 107 mmol/L (98-107); Creatinine, Serum 0.87 mg/dL (0.55-1.02); EST Glomerular Filtration Rate 82 mL/min (>60); Est Glom Filt Rate - Afr Amer 100 mL/min (>60); Estimated Creatinine Clearance 90.93 ml/min; Glucose 77 mg/dL (74-106); Magnesium 2.4 mg/dL (1.6-2.6); Potassium 3.9 mmol/L (3.5-5.1); Sodium Level 138 mmol/L (136-145); Thyroid Stim Hormone (TSH) 3.15 uIU/mL (0.358-3.74)
--- NOTE | 2021-03-07 17:41 | PCM.PN.OB ---
Subjective Subjective Patient denies complaints & feels well Objective Data Objective Data Vital Signs: Vital Signs Temp Pulse Resp BP Pulse Ox 97.9 F 88 16 155/76 H 96 03/07/21 15:43 03/07/21 15:43 03/07/21 15:43 03/07/21 15:43 03/07/21 12:29 Oxygen Delivery Method Room Air Weight: 256 lb 6.362 oz Body Mass Index (BMI) 41.3 Intake & Output: Intake and Output for Last 24 Hours 03/05/21 03/06/21 03/07/21 23:59 23:59 23:59 Intake Total 3599.17 / 3599.17 Output Total 1750 / 1750 Balance 1849.17 / 1849.17 Lab / Micro Data Result Diagrams: 03/05/21 05:33 03/07/21 16:50 Labs: Laboratory Results - last 24 hr 03/07/21 16:50: Sodium 138, Potassium 3.9, Chloride 107, Carbon Dioxide 23.0, Anion Gap 8, BUN 12, Creatinine 0.87, Estim Creat Clear Calc 90.93, Est GFR (MDRD) Af Amer 100, Est GFR (MDRD) Non-Af 82, BUN/Creatinine Ratio 13.7, Glucose 77, Calcium 8.7, Magnesium 2.4, TSH 3.15 Micro: Microbiology 03/04/21 11:10 Nasal Secretion SARS-CoV-2 Antigen (Rapid) - Final Physical Exam Const alert, oriented x3 and no apparent distress HEENT normocephalic GI soft to palpation, non-tender and non-distended GI Narrative: fundus firm, mid & below umbilicus Incision - bandage c/d/i Extremity normal to inspection and no calf tenderness Assessment & Plan (1) Preeclampsia, severe: QUALIFIERS: Qualified Code(s): O14.13 - Severe pre-eclampsia, third trimester COMMENT: POD#3 PLAN: Severe preeclampsia - appreciate cardiology consult for persistently elevated BP's PP. Continue medications of hydralazine 40mg qid and nifedipine 60XL daily - can increase if needed. Normal EKG & labs. Await tests ordered by including CXR & echo. Routine PP care
--- NOTE | 2021-03-07 17:50 | NURSING ---
Pt off unit to go to radiology for chest x-ray.
--- NOTE | 2021-03-07 18:00 | RAD_ITS ---
INDICATION: Preeclampsia; HTN -- s/p C Section EXAMINATION/TECHNIQUE: X-RAY - XR Chest 2 Views COMPARISON: None. FINDINGS: LINES/DEVICES: None. LUNGS: Symmetric normal lung volumes. No airspace opacity or abnormal interstitial pattern. No nodule or mass. No pleural effusion or pneumothorax. MEDIASTINUM AND CARDIOVASCULAR STRUCTURES: Normal size and contour of the cardiomediastinal silhouette. No evidence of pulmonary vascular congestion. BONES AND SOFT TISSUES: No abnormality within limits of the exam. RAD/Chest PA and Lateral IMPRESSION: 1. No radiographic evidence of acute cardiopulmonary disease. Electronically Signed: Drew Romero DO at 21:05 EST Tel , Service support ,
--- NOTE | 2021-03-07 18:12 | NURSING ---
Pt back in room from radiology
[2021-03-08] VITALS (20 sets, daily range): BP systolic 137–168; BP diastolic 83–98; PULSE 74–110; RESP 14–16; TEMP 36.8–37.2; O2SAT 97–99
[2021-03-08] MEDS: hydrALAZINE 50 MG Tablet PO ×3 (00:53→12:22)
[2021-03-08] MEDS: Naproxen 500 MG Tablet PO ×2 (00:53→07:43)
[2021-03-08] MEDS: Acetaminophen 500 MG Tablet 1000 MG PO ×2 (04:41→10:48)
[2021-03-08] MEDS: Enoxaparin 40 MG/0.4 ML Syringe SC (06:43)
[2021-03-08] MEDS: NIFEdipine 60 MG Tablet PO (09:18)
--- NOTE | 2021-03-08 10:21 | PN.CARD_ITS ---
Subjective Subjective The patient is awake and alert. She has no new complaints at this time. Objective Data Vital Signs: Vital Signs Temp Pulse Resp BP Pulse Ox 98.2 F 93 14 147/91 H 99 03/08/21 07:44 03/08/21 09:12 03/08/21 07:44 03/08/21 09:12 03/08/21 07:44 Oxygen Delivery Method Room Air Weight: 256 lb 6.362 oz Body Mass Index (BMI) 41.3 Lab / Micro Data Result Diagrams: 03/05/21 05:33 03/07/21 16:50 Labs: Laboratory Results - last 24 hr 03/07/21 16:50: Sodium 138, Potassium 3.9, Chloride 107, Carbon Dioxide 23.0, Anion Gap 8, BUN 12, Creatinine 0.87, Estim Creat Clear Calc 90.93, Est GFR (MDRD) Af Amer 100, Est GFR (MDRD) Non-Af 82, BUN/Creatinine Ratio 13.7, Glucose 77, Calcium 8.7, Magnesium 2.4, TSH 3.15 Cardiology Labs/Tests 03/07/21 16:50: Sodium 138, Potassium 3.9, Chloride 107, Carbon Dioxide 23.0, Anion Gap 8, BUN 12, Creatinine 0.87, Est GFR (MDRD) Af Amer 100, Est GFR (MDRD) Non-Af 82, BUN/Creatinine Ratio 13.7, Glucose 77, Calcium 8.7, Magnesium 2.4 ECHO: As noted below Radiography Diagnostic Testing: Radiology Impression Echocardiogram 03/07/21 17:01 Interpretation Summary Left ventricular systolic function is normal. The estimated ejection fraction is 70 %. Mild concentric left ventricular hypertrophy. Trivial mitral valve insufficiency. Trivial tricuspid valve insufficiency. Trivial pulmonic valve insufficiency. Unable to estimate RV systolic pressure due to insufficient tricuspid regurgitant envelope. No evidence for diastolic dysfunction. Ordering Physician: Morris Alaniz Referring Physician: Bridgett Garcia Performed By: David Lantigua RCS Chest X-Ray 03/07/21 18:00 IMPRESSION: 1. No radiographic evidence of acute cardiopulmonary disease. Electronically Signed: Drew Romero, DO at 21:05 EST Tel , Service support , Physical Exam Const alert, oriented x3, no apparent distress and healthy appearing Orientation / Consciousness: awake HEENT normocephalic, head/scalp atraumatic and hearing grossly normal bilaterally Eyes PERRL, EOMs intact bilaterally and conjunctivae normal Neck full ROM, supple and no JVD Resp clear to auscultation bilaterally Cardio regular rhythm, S1 normal heart sound and S2 normal heart sound Rate: tachycardic GI normal to inspection, nondistended, normoactive bowel sounds Extremity no pedal edema Skin no rashes or lesions noted Neuro oriented x3, moves all extremities, no focal motor deficits and no sensory deficits noted Psych mental status grossly normal Assessment & Plan Assessment/Plan (1) HTN (hypertension): PLAN: The patient does appear to have evidence of hypertension at this time. It has been attributed to a diagnosis of preeclampsia as the patient states she has no diagnosis of hypertension prior to her . At the present time she is now status post without obvious adverse event/complication. She has had laboratory follow-up with no obvious adverse electrolyte abnormalities or abnormalities of her TSH level. Her ECG demonstrated sinus rhythm/sinus tachycardia with poor R wave progression with no acute ECG changes. Her chest x-ray did not appear to demonstrate any acute cardiopulmonary findings. Her transthoracic echocardiogram is as noted with overall preserved LV wall motion and systolic function/LVEF. At the present time she will continue medical management. Her dihydropyridine will be increased to nifedipine XL 90 mg p.o. daily. She will continue her hydralazine/Apresoline therapy. Hopefully as she gets further from her labor and delivery time and with the medications her blood pressure will continue to come under better control. (2) Preeclampsia, severe: QUALIFIERS: Qualified Code(s): O14.13 - Severe pre-eclampsia, third trimester PLAN: Again the patient was diagnosed with preeclampsia. She is now status post without obvious adverse events/complication. She states since her she has been noting increased urinary output and her lower extremity edema has decreased. She will continue medical therapy as noted above. (3) Delivery by section: PLAN: Based upon the diagnosis of preeclampsia the patient underwent a C- section. It is noted overall that since her her blood pressures, with the assistance of her medications, have been gradually improving. She will continue her noninvasive valuation medical therapy. Addt'l Comments Overall, at the present time, she appears to be without acute symptoms. She has undergone noninvasive valuation. Her medications will be continued with adjustments as deemed appropriate. She should continue to follow with her primary care physician and her TECHNOLOGY [employer] TE[employer] physicians. She was offered future outpatient cardiovascular follow-up as well to assist with monitoring her blood pressure as she recuperates from her in labor and delivery. Hopefully over time as she gets further away from her in labor and delivery her blood pressures will continue to improve and/or normalize and perhaps she will not need long-term medical management. Thank you for allowing me to participate in the care of your patient. Please don't hesitate to call if any issues arise. This note was generated using a voice recognition system and there may be incorrect words, spelling or punctuation that were not noted when reviewing the office note prior to saving.
[2021-03-08] MEDS: NIFEdipine 30 MG Tablet PO (10:27)
[2021-03-08] MEDS: Senna/Docusate Sodium 1 Tablet PO (10:48)
--- NOTE | 2021-03-08 12:09 | PN.OBGYN_ITS ---
Subjective Subjective Doing well per patient and nursing staff. Ambulating and taking PO without difficulty. Voiding and passing flatus. Pain controlled. , services for assistance. Denies headache, visual changes, chest pain, shortness of breath, leg pain or increased bleeding. Lochia normal. Objective Data Objective Data Vital Signs: Vital Signs Temp Pulse Resp BP Pulse Ox 98.2 F 93 14 147/91 H 99 03/08/21 07:44 03/08/21 09:12 03/08/21 07:44 03/08/21 09:12 03/08/21 07:44 Oxygen Delivery Method Room Air Weight: 256 lb 6.362 oz Body Mass Index (BMI) 41.3 Lab / Micro Data Result Diagrams: 03/05/21 05:33 03/07/21 16:50 Labs: Laboratory Results - last 24 hr 03/07/21 16:50: Sodium 138, Potassium 3.9, Chloride 107, Carbon Dioxide 23.0, Anion Gap 8, BUN 12, Creatinine 0.87, Estim Creat Clear Calc 90.93, Est GFR (MDRD) Af Amer 100, Est GFR (MDRD) Non-Af 82, BUN/Creatinine Ratio 13.7, Glucose 77, Calcium 8.7, Magnesium 2.4, TSH 3.15 Micro: Microbiology 03/04/21 11:10 Nasal Secretion SARS-CoV-2 Antigen (Rapid) - Final Radiography Diagnostic Testing: Radiology Impression Echocardiogram 03/07/21 17:01 Interpretation Summary Left ventricular systolic function is normal. The estimated ejection fraction is 70 %. Mild concentric left ventricular hypertrophy. Trivial mitral valve insufficiency. Trivial tricuspid valve insufficiency. Trivial pulmonic valve insufficiency. Unable to estimate RV systolic pressure due to insufficient tricuspid regurgitant envelope. No evidence for diastolic dysfunction. Ordering Physician: Morris Alaniz Referring Physician: Bridgett Garcia Performed By: David Lantigua RCS Chest X-Ray 03/07/21 18:00 IMPRESSION: 1. No radiographic evidence of acute cardiopulmonary disease. Electronically Signed: Drew Romero DO at 21:05 EST Tel , Service support , ROS Constitutional Constitutional: Reports systems reviewed and no addt'l complaints, except as documented; Denies headache(s) Eyes Eyes: Denies acute decrease in peripheral vision, blurry vision or change in vision ENT HEENT: Reports systems reviewed and no addt'l complaints, except as documented Cardiovascular Cardiovascular: Denies chest pain or dizziness Respiratory/Chest Respiratory/Chest: Denies cough, dyspnea, dyspnea on exertion, shortness of breath at rest or shortness of breath with exertion Gastrointestinal Gastrointestinal: Denies abdominal pain, diarrhea, nausea or vomiting Genitourinary Genitourinary: Denies abdominal discomfort Musculoskeletal Musculoskeletal: Denies limited range of motion Integumentary Integumentary: Reports systems reviewed and no addt'l complaints, except as d ocumented Neurologic Neurologic: Reports systems reviewed and no addt'l complaints, except as documented Psychiatric Psychiatric: Reports systems reviewed and no addt'l complaints, except as documented Endocrine Endocrinology: Reports systems reviewed and no addt'l complaints, except as documented Hematologic/Lymphatic Hematologic/Lymphatic: Reports systems reviewed and no addt'l complaints, except as documented Allergic/Immunologic Allergic/Immunologic: Reports systems reviewed and no addt'l complaints, except as documented Physical Exam Const alert and oriented x3 General Appearance: cooperative Orientation / Consciousness: awake, oriented to person, oriented to place and oriented to time Exam Limitations: no limitations HEENT normocephalic Head and Scalp: normal to inspection, normocephalic and atraumatic Face and Sinus: normal facial exam Eyes General Eye: normal appearance of both eyes Neck full ROM Chest Chest: symmetrical chest wall rise Resp normal respiratory effort and normal air movement Auscultation: clear to auscultation bilaterally Cardio regular rate, regular rhythm, S1 normal heart sound, S2 normal heart sound, no murmurs, no rub, no gallops and no clicks GI normal to inspection, nondistended, normoactive bowel sounds and non-tender appearance of the vagina normal Bladder / Kidney Exam: no CVA tenderness Back/Spine normal ROM Extremity normal to inspection and full ROM Skin no rashes or lesions noted Neuro oriented x3, CN's II-XII intact bilaterally and moves all extremities Sensorium / Orientation: awake, alert and oriented to person Motor Exam: clonus absent Deep Tendon Reflexes: Rt Patellar (L4): 2+ and Lt Patellar (L4): 2+ Assessment & Plan (1) HTN (hypertension): (2) Delivery by section: (3) Preeclampsia, severe: QUALIFIERS: Qualified Code(s): O14.13 - Severe pre-eclampsia, third trimester COMMENT: POD#4 PLAN: hydralazine 40mg qid and nifedipine 60XL daily - can increase if needed. Normal EKG & labs. Await tests 1)Routine care 2)BP decreased, cardiology consult and echo completed today, see progress note. Her transthoracic echocardiogram is as noted with overall preserved LV wall motion and systolic function/LVEF. 3) Hydralazine 40mg QID and Nifedipine XL 90mg PO daily for BP management. Ok to follow up outpatient for BP control with cardiology and primary care. It has been attributed to a diagnosis of preeclampsia as the patient states she has no diagnosis of hypertension prior to her . 4) Discharge home (4) Body mass index (BMI) of 40.1 to 44.9 in adult:
--- NOTE | 2021-03-08 12:16 | PCM.DC.SUM ---
Providers Date of Admission: 03/04/21 Primary Care Physician: Kari Alston, LUNCHROOM FOOD SERVICE SUPERVISOR-C Consultations 03/07/21 13:17 Consult: Cardiology Routine Consulting Provider: Anthony Duggan Reason for Consult: severe Pre-eclampsia EMERGENT Consult: No MD Notified: Yes Date Notified: 03/07/21 Time Notified: 13:17 Method of Notification: Page Comments:: Dr. Elissa Duggan consulting cardiology Reason For Visit: C SECTION Diagnosis Discharge Diagnosis (1) HTN (hypertension): Status: Chronic Code(s): I10 - Essential (primary) hypertension (2) Delivery by section: Status: Acute (3) Preeclampsia, severe: Status: Acute Code(s): O14.10 - Severe pre-eclampsia, unspecified trimester Qualifiers: Qualified Code(s): O14.13 - Severe pre-eclampsia, third trimester (4) Body mass index (BMI) of 40.1 to 44.9 in adult: Status: Acute Code(s): Z68.41 - Body mass index [BMI] 40.0-44.9, adult Medications at Discharge Home Medications anlsitrb-fvj-Xl-FA 1 tab PO DAILY 03/04/21 acetaminophen 1,000 mg PO Q6H #0 tab 03/08/21 hydralazine 50 mg PO Q6 #60 tab 03/08/21 nifedipine 90 mg PO DAILY #30 tab 03/08/21 oxycodone 5 mg PO Q6H 7 Days #10 tab 03/08/21 sennosides-docusate sodium [Stool Softener-Stimulant Laxat] 1 tab-cap PO DAILY 7 Days #7 tab 03/08/21 Hospital Course Summary of Care Provided Hospital Course: 03/04/21 LTCS for severe preeclampsia. Labor and delivery complicated by severe preeclampsia. Cardiology consultation completed. Discharge home on POD #4 Weight / BMI Weight Weight: 256 lb 6.362 oz Body Mass Index (BMI) 41.3 ABG / Lab / Microbiology Data Result Diagrams: 03/05/21 05:33 03/07/21 16:50 Laboratory: Laboratory Results - last 24 hr 03/07/21 16:50: Sodium 138, Potassium 3.9, Chloride 107, Carbon Dioxide 23.0, Anion Gap 8, BUN 12, Creatinine 0.87, Estim Creat Clear Calc 90.93, Est GFR (MDRD) Af Amer 100, Est GFR (MDRD) Non-Af 82, BUN/Creatinine Ratio 13.7, Glucose 77, Calcium 8.7, Magnesium 2.4, TSH 3.15 Microbiology: Microbiology 03/04/21 11:10 Nasal Secretion SARS-CoV-2 Antigen (Rapid) - Final Radiography Diagnostic Testing: Radiology Impression Echocardiogram 03/07/21 17:01 Interpretation Summary Left ventricular systolic function is normal. The estimated ejection fraction is 70 %. Mild concentric left ventricular hypertrophy. Trivial mitral valve insufficiency. Trivial tricuspid valve insufficiency. Trivial pulmonic valve insufficiency. Unable to estimate RV systolic pressure due to insufficient tricuspid regurgitant envelope. No evidence for diastolic dysfunction. Ordering Physician: Morris Alaniz Referring Physician: Bridgett Garcia Performed By: David Lantigua RCS Chest X-Ray 03/07/21 18:00 IMPRESSION: 1. No radiographic evidence of acute cardiopulmonary disease. Electronically Signed: Drew Romero DO at 21:05 EST Tel , Service support , Meaningful Use Info Meaningful Use Diagnoses (Choose all that apply): None applicable Discharge Plan Admission Admit Date/Time: 03/04/21 11:17 Primary Reason for Your Visit: section Attending Provider: Leslie Giron Primary Care Provider: Kari Alston Consulting Providers: Anthony Duggan Discharge Orders/Prescriptions Prescriptions: New nifedipine 90 mg Tablet Extended Release 90 mg PO DAILY Qty: 30 RF: 0 sennosides-docusate sodium [Stool Softener-Stimulant Laxat] 8.6-50 mg Tablet 1 tab-cap PO DAILY 7 Days Qty: 7 RF: 0 acetaminophen 500 mg Tablet 1,000 mg PO Q6H Qty: 0 RF: 0 hydralazine 50 mg Tablet 50 mg PO Q6 Qty: 60 RF: 0 oxycodone 5 mg Tablet 5 mg PO Q6H 7 Days Qty: 10 RF: 0 Continued panzuwbg-rdu-Zi-FA 1 mg Tablet 1 tab PO DAILY RF: 0 Discontinued aspirin [Aspir-Low] 81 mg Tablet,Delayed Release (Dr/Ec) 81 mg PO DAILY RF: 0 Referrals / Follow Up: Anthony Duggan MD [STAFF PHYSICIAN] - (Call to make appointment for blood pressure and incision check on 03/11/21) Kari Alston, L[employer]CH[employer] SERVICE SUPERVISOR-C [Primary Care Provider] - Disposition Disposition (needs filled in before D/C Order can be placed): Home, Self Care
== END 2021-03-08 14:00 | disposition home or self-care (01) | DRG 788 ==
LOC: WPOUT 11:45 → WP 17:48
PROVIDERS: Internal Medicine Cardiovascular Disease; Admitting Provider Obstetrics & Gynecology; PCP Nurse Practitioner Family; Referring Provider Advanced Practice Midwife; Visit Provider Obstetrics & Gynecology
DX: O76 Abnormality in fetal heart rate and rhythm complicating labor and delivery (principal); O14.14 Severe pre-eclampsia complicating childbirth; Z37.0 Single live birth; Z3A.36 36 weeks gestation of pregnancy; Z87.891 Personal history of nicotine dependence; O99.214 Obesity complicating childbirth; E66.9 Obesity, unspecified; O69.81X0 Labor and delivery complicated by cord around neck, without compression, not applicable or unspecified
CPT/HCPCS: 59025; 59050; 71046; 80048; 82565; 82570; 83735; 84156; 84443; 84450; 84460; 84550; 85027; 86850; 86900; 86901; 87426; 93005; 93306; 99218; J7120; A4216; G0378; J2405

== ENCOUNTER 2022-07-01 09:30 | Inpatient (IN) | payer BC, SELFPAY ==
--- NOTE | 2022-06-29 15:01 | HP.PCM_ITS ---
History and Physical Date of Admission: 07/01/22 Pre-Op History and Physical ? HPI: The patient is a 26 year old female presenting for pre-operative visit. She is scheduled for , for previous c/s on 07/01. Procedure discussed along with risks, benefits and complications. Other alternatives discussed for management. Consent form signed? Yes. ? ? PAST MEDICAL HISTORY PAST MEDICAL HISTORY Diagnosis Date ? Abnormal glandular Papanicolaou smear of cervix ? ? +HPV ? Abnormal glandular Papanicolaou smear of cervix 11/24/2021 ? COVID-19 10/2020 ? Gestational proteinuria in third trimester 03/04/2021 ? Infertility, female ? ? PCOS (polycystic ovarian syndrome) ? ? Preeclampsia, third trimester 03/04/2021 ? ? PAST SURGICAL HISTORY PAST SURGICAL HISTORY Procedure Laterality Date ? DELIVERY ONLY ? 03/04/2021 ? LTCS ? PAST SURGICAL HISTORY OF ? ? ? wisdom teeth ? TONSILLECTOMY AND ADENOIDECTOMY HX ? ? ? VAGINOSCOPY ? CURRENT MEDICATIONS Current Outpatient Medications Medication Sig Dispense Refill ? PNV no.95/ferrous fum/folic ac ( ORAL) Take by mouth. ? ? ? aspirin, enteric coated (ASPIRIN, ENTERIC COATED) 81 mg EC tablet Take 1 tablet by mouth once daily. ? ? ? No current facility-administered medications for this visit. ? ? ALLERGIES: Patient has no known allergies. ? PERSONAL HISTORY: SOCIAL HISTORY Social History ? Tobacco Use ? Smoking status: Former ? ? Years: 1.00 ? ? Types: Cigarettes ? ? Quit date: 08/20/2018 ? ? Years since quittin.8 ? Smokeless tobacco: Never Vaping Use ? Vaping Use: Never used Substance Use Topics ? Alcohol use: Not Currently ? Drug use: Never ? FAMILY HISTORY: FAMILY HISTORY FAMILY HISTORY Problem Relation Age of Onset ? other (anorexia) Mother ? ? Heart Father ? ? No Known Problems Paternal Grandmother ? ? Lung Cancer Paternal Grandfather ? ? No Known Problems Son ? ? ? REVIEW OF SYMPTOMS: GENERAL: denies fevers or chills ENDOCRINOLOGY: has not been on steroids Cardiology : denies palpitations or chest pain Respiratory: denies SOB or cough Hematology: denies history of prolonged bleeding or easy bruising or VTE Allergy: Denies history of personal or family history of allergy to anesthesia ? PHYSICAL EXAMINATION: ? VITALS: Last menstrual period 09/17/2021, currently . ? GENERAL: The patient is well nourished, well hydrated in no acute distress. , The patient is oriented to time, place, and person. NECK: Supple. No lynphadenopathy, normal thyroid, no thyromegaly. LUNGS: Clear to auscultation bilaterally. no wheezes, rhonchi or rales HEART: Regular rate and rhythm, Normal heart sounds, and No murmurs or gallops abd- soft, nontender, gravid ? IMPRESSION: Estimated Date of Delivery: 07/06/22 ? PLAN: The risks/benefits/alternatives and personal involved for the planned c- section and tubal sterilization, salpingectomy if possible were reviewed with the patient. Her questions were answered to her satisfaction and she desires to proceed. Consent was signed. I reviewed with her postop instructions and expectations. ? ? I have reviewed and updated past medical and surgical history, medications
[2022-07-01] VITALS (15 sets, daily range): BP systolic 100–130; BP diastolic 56–84; PULSE 51–81; RESP 15–16; TEMP 36.1–37.1; O2SAT 95–97; BMI 40.3
--- NOTE | 2022-07-01 | FALS_PTH ---
PATIENT: ALEXIA GAGE LOC: [facility] U#:[id number] AGE/SX: 26/F ROOM: WP006 RE07/01/[address]: Dr. Leslie Giron MD : 1995 BED: 1 DIS: 07/03/2022 SPEC #: [id number] RECD: 07/01/22 15:27 STATUS: ANTIONETTE REWinnie #: [id number] PAT: 07/01/22 00:[address]: Leslie Giron DEPT: SURGICAL PATHOLOGY RECD BY: Juan Porter ENTERED: 07/04/22 11:28 SP TYPE: FALL TUBES OTHR DR: Kari Alston, BRICK SHADER-C Tissues: A - Placenta, NOS B - Fallopian tube Procedures: Surgery Specimen Level II Surgery Specimen Level V HEADER OPERATION: Repeat caesarean section, salpingectomy PRE-OP DIAGNOSIS: Delivery, sterilization TISSUE SUBMITTED: A ? Placenta, B ? Fallopian tubes MICROSCOPIC DIAGNOSIS A. Elena placenta (388 gm): Umbilical cord ? trivascular with no inflammation. Placental membranes - No pathologic change. Placental disc ? intervillous congestion and Cici-Rad change. B. Right fallopian tube, salpingectomy: Complete cross-section with no pathologic change. Left fallopian tube, salpingectomy: Complete cross-section with no pathologic change. AM:kelley 07/05/2022 MICROSCOPIC DESCRIPTION Slides are reviewed. GROSS DESCRIPTION A - SPECIMEN: PLACENTA / CLINICAL INFORMATION: A. Weight: 3.185 kg B. Gestational Age: 39 weeks C. Sex: Female PLACENTAL WEIGHT (POST FIXATION): 388 gm PLACENTAL DIMENSIONS: 16.0 x 15.0 x 3.0 cm PLACENTAL SHAPE: Usual ovoid PLACENTAL WEIGHT FOR GESTATIONAL AGE: Within 10-99th percentile MEMBRANES - Present A. Insertion: Marginal B. Site of rupture from edge: 4.0 cm from edge of placental disc C. Color of membrane: Rowley-boyce D. Abnormalities: None UMBILICAL CORD - Present A. Color: Rowley-boyce B. Insertion: Eccentric C. Length: 44.0 cm D. Diameter: 1.0 cm E. Number of vessels: Three F. Abnormalities: None PLACENTAL DISC - Present A. Color of surface: Rowley-boyce B. surface abnormalities: None C. Maternal cotyledons: Intact with minimal tears D. Attached retro placental clot: No clot E. Cut surface: Dark red and spongy F. Lesions: None G. Separate clot: Absent SECTIONS SUBMITTED: 1. Umbilical cord ( end notched) 2. Umbilical cord, placental end 3. Membrane roll 4. Placental disc, and maternal surfaces 5. Placental disc, and maternal surfaces 6. Placental disc, and maternal surfaces B. Received in fixative is one container labeled with the patient's name and designated bilateral fallopian tubes, right with suture. The specimen consists of two fallopian tubes with an average length of 6.0 cm and has an average diameter of 0.8 cm. Both fallopian tubes have normal fimbriated ends. No mass lesions are identified. Location Analyst sections are submitted in two cassettes as follows: 1 - right fallopian tube, 2 - left fallopian tube. / AM:kelley 07/04/2022 TC:5 CPT: 16966, 22667 x2
[2022-07-01] MEDS: Acetaminophen 500 MG Tablet 1000 MG PO ×3 (10:34→22:21)
[2022-07-01] MEDS: Lactated Ringers 1,000 ML 999 ML IV (10:37)
[2022-07-01 10:52] LABS: Absolute Lymphocyte Count 1.55 X10^3/uL (0.83-4.51); Absolute Neutrophil Count 7.3 X10^3/uL (2.0-7.7); Basophil# 0.05 X10^3/uL; Basophil% 0.5 % (0-1); Eosinophil# 0.31 X10^3/uL; Eosinophils% 3.1 % (0-5); Hematocrit 36.1 % (37-47); Hemoglobin 11.8 g/dL (12.0-15.0); Lymphocyte # 1.55 X10^3/ul (0.83-4.51); Lymphocyte % 15.7 % (19-41); Mean Corp Hgb Conc 32.7 g/dL (32-36); Mean Corpuscular Hgb 29.1 pg (27.0-32.0); Mean Corpuscular Volume 88.9 fL (81-99); Mean Platelet Vol. 9.9 fl (6.2-12.0); Monocyte# 0.65 X10^3/uL; Monocyte% 6.6 % (0-10); NRBC Flagged by Analyzer 0 % (0-5); Neutrophil # 7.28 X10^3/uL (2.7-7.7); Neutrophil % 73.6 % (47-70); Platelet Count 267 K/mm3 (150-450); RBC Distribution Width CV 13.8 % (11.6-14.6); RBC Distribution Width SD 44.2 fl (35.1-43.9); Red Blood Count 4.06 M/mm3 (4.2-5.4); White Blood Count 9.9 K/mm3 (4.4-11.0)
[2022-07-01] MEDS: Lactated Ringers 1,000 ML 150 ML IV (11:22)
[2022-07-01 11:32] LABS: Syphilis Antibodies Non-reactive
[2022-07-01] MEDS: Sodium Citrate/Citric Acid 30 ML UDC PO (12:48)
--- NOTE | 2022-07-01 13:52 | EX.PCM.OBRPT ---
Assessment & Plan (1) 39 weeks gestation of : (2) Maternal obesity syndrome in third trimester: (3) Body mass index (BMI) of 40.1 to 44.9 in adult: (4) High-risk in third trimester: (5) Previous delivery affecting , antepartum: Maternal Data Information Final JHONNY: 07/06/22 Gestational age: 39 2/7 Details Operative Information Date of Procedure: 07/01/22 Pre-Operative Diagnosis: previous c/s Post-Operative Diagnosis: same Indications for : Repeat Elective and Desires elective sterilization Classification: Scheduled Procedure Type: bilateral salpingectomy warehouse technician #1: Lyndsey Muller warehouse technician #2: Akil Sun [id number] Type of Anesthesia: Spinal Anesthesiologist: Alber Melendrez Special Medications: duramorph Antibiotic Given: Ancef 3 grams IV x1 Drain: Kramer to straight drain Estimated Blood Loss: 700 Fluids Replaced: 1500 Procedure Start Time: 13:19 Procedure Stop Time: 14:02 Time of Delivery: 13:22 Findings Description of Procedure: The patient was taken to the operating room. She was prepped and draped in the dorsal supine position with a leftward tilt. A Pfannenstiel skin incision was made approximately 2 cm above the symphysis pubis and carried through to underlying layer fascia with the scalpel. The fascia was incised incised in the midline and extended laterally with the Rasheed scissors. The rectus muscles were in the midline and the peritoneum was entered bluntly. The peritoneal incision was stretched and the Justice O retractor was placed. The uterine incision was made in a low transverse fashion with the scalpel and extended superiorly and inferiorly with blunt dissection. The amniotic membranes were ruptured bluntly and clear amniotic fluid returned. The 's head was brought to the incision in the flexed position and delivered without difficulty. The remainder of the was delivered with gentle traction and fundal pressure in the standard fashion. The mouth and nares were bulb suctioned. The cord was clamped and cut as the infant was stimulated. Cord clamping was delayed. The infant was handed off to the waiting nursing staff. The placenta was delivered with fundal massage and gentle traction in the standard fashion. The uterus was exteriorized and cleared of all clots and debris. The cervix was dilated with a ring forcep. The uterine incision was closed with #1 Vicryl in a running locked fashion. Several [id number] #1 Vicryl sutures were placed through some bleeding sinuses to obtain hemostasis. The incision was examined and was found to be hemostatic. The uterus was placed back into the peritoneal cavity and hemostasis was again confirmed. The right fallopian tube was followed out to the fimbriated end. The LigaSure device was used to clamp, seal and transect the antimesenteric portion of the broad ligament to the cornual insertion of the tube. The cornual insertion of the tube was clamped across with the LigaSure device and it was used to seal and transect the tube away from the uterus. Excellent hemostasis of the pedicles was noted. The same procedure was performed on the contralateral side and excellent hemostasis was noted. The uterine incision was again reexamined and found to be hemostatic. Some Shahla was placed over the uterine incision. The rectus muscles were examined and any bleeding was Bovie cauterized. The parietal peritoneum and rectus muscles were closed en bloc with an 0 Vicryl running suture. Some Shahla was placed over the rectus muscles. The rectus fascia was examined and any bleeding was Bovie cauterized and the rectus fascia was closed with #1 PDS suture in a running standard fashion. The subcutaneous tissue was examining and any bleeding was Bovie cauterized. The subcutaneous tissue was reapproximated with 3-0 Vicryl suture. The skin was closed in a subcuticular fashion by the CUSTOMER EXPERIENCE INTERN with me present in the labor and delivery suite. I performed the remainder of the procedure with assistance. All sponge, lap, and needle counts were correct. The patient was taken to her room for recovery in a stable condition. Presentation: Positive for Vertex Amniotic Membrane Rupture Type: Artificial Amniotic Fluid Description: Clear Placental Delivery Description: Expressed Placenta Disposition: [facility] Specimen(s) Sent to Pathology: Bilateral fallopian tube Cord Vessel Description: 3 Vessels Cord Entanglement: Around neck x 1, loose Nuchal Cord Compression: Without compression A Gender: Female (7lb 8 oz, Ashlie) (1 minute): 8 (5 minute): 9 Delayed Cord Clamping: Yes Complications Complications: none
[2022-07-01] MEDS: Oxytocin 15 Units/NS 250ml 15 UNITS/250 ML IV.SOLN 83 UNITS IV (14:15)
[2022-07-01] MEDS: Ketorolac 30 MG/ML Syringe IV ×2 (14:49→21:23)
[2022-07-01 15:28] LABS: Pathology Specimen OB SEE PATHOLOGY REPORT
[2022-07-01 15:28] LABS: Pathology Specimen OB SEE PATHOLOGY REPORT
[2022-07-01] MEDS: Lactated Ringers 1,000 ML 100 ML IV (17:33)
[2022-07-01] MEDS: 0.9% Saline Lock 10 ML Syringe IV (21:23)
[2022-07-02] VITALS (12 sets, daily range): BP systolic 105–146; BP diastolic 61–95; PULSE 71–84; RESP 15–18; TEMP 36.2–37.1; O2SAT 15–97
[2022-07-02] MEDS: Enoxaparin 40 MG/0.4 ML Syringe SC ×2 (01:13→13:42)
[2022-07-02] MEDS: Ketorolac 30 MG/ML Syringe IV (03:11)
[2022-07-02] MEDS: Acetaminophen 500 MG Tablet 1000 MG PO ×4 (04:42→23:21)
[2022-07-02 05:01] LABS: Hematocrit 31.5 % (37-47); Hemoglobin 10.4 g/dL (12.0-15.0); Mean Corpuscular Hgb 29.5 pg (27.0-32.0); Mean Corpuscular Volume 89.5 fL (81-99); Mean Platelet Vol. 9.6 fl (6.2-12.0); Platelet Count 229 K/mm3 (150-450); RBC Distribution Width CV 14.1 % (11.6-14.6); RBC Distribution Width SD 45.9 fl (35.1-43.9); Red Blood Count 3.52 M/mm3 (4.2-5.4); White Blood Count 10.1 K/mm3 (4.4-11.0)
[2022-07-02] MEDS: Ibuprofen 600 MG Tablet PO ×3 (08:54→21:46)
[2022-07-02] MEDS: Senna/Docusate Sodium 1 Tablet PO (08:54)
--- NOTE | 2022-07-02 10:01 | PN.OBGYN_ITS ---
Subjective Subjective Doing well per patient and nursing staff. Ambulating and taking PO without difficulty. Voiding and passing flatus. Pain controlled. , services for assistance. Denies headache, visual changes, chest pain, shortness of breath, leg pain or increased bleeding. Lochia normal. Objective Data Objective Data Vital Signs: Vital Signs Temp Pulse Resp BP Pulse Ox O2 Del Method 97.8 F 71 18 105/61 97 Room Air 07/02/22 09:00 07/02/22 09:00 07/02/22 09:00 07/02/22 09:00 07/02/22 09:00 07/02/22 09:00 Oxygen Delivery Method Room Air Weight: 250 lb Body Mass Index (BMI) 40.3 Intake & Output: Intake and Output for Last 24 Hours 06/30/22 07/01/22 07/02/22 23:59 23:59 23:59 Intake Total 2241.67 / 2241.67 Output Total 1300 / 1300 500 / 500 Balance 941.67 / 941.67 -500 / -500 Lab / Micro Data Result Diagrams: 07/02/22 04:52 Labs: Laboratory Results - last 24 hr 07/01/22 10:25: WBC 9.9, RBC 4.06 L, Hgb 11.8 L, Hct 36.1 L, MCV 88.9, MCH 29.1, MCHC 32.7, RDW Std Deviation 44.2 H, RDW Coeff of Katharine 13.8, Plt Count 267, MPV 9.9, Immature Gran % (Auto) 0.500, Neut % (Auto) 73.6 H, Lymph % (Auto) 15.7 L, [place] % (Auto) 6.6, Eos % (Auto) 3.1, Baso % (Auto) 0.5, Absolute Neuts (auto) 7.3, Absolute Lymphs (auto) 1.55, Nucleated RBC % 0 07/01/22 10:25: Blood Type O NEGATIVE, Antibody Screen TNP 07/01/22 10:25: Syphilis Total Ab Non-reactive 07/01/22 10:25: Antibody Screen NEGATIVE 07/01/22 16:15: Screen NEGATIVE, Baby's Blood Type O POSITIVE, Baby's NINFA NEGATIVE 07/02/22 04:52: WBC 10.1, RBC 3.52 L, Hgb 10.4 L, Hct 31.5 L, MCV 89.5, MCH 29.5, MCHC 33.0, RDW Std Deviation 45.9 H, RDW Coeff of Katharine 14.1, Plt Count 229, MPV 9.6 ROS Constitutional Constitutional: Reports systems reviewed and no addt'l complaints, except as documented; Denies headache(s) Eyes Eyes: Denies acute decrease in peripheral vision, blurry vision or change in vision ENT HEENT: Reports systems reviewed and no addt'l complaints, except as documented Cardiovascular Cardiovascular: Denies chest pain or dizziness Respiratory/Chest Respiratory/Chest: Denies cough, dyspnea, dyspnea on exertion, shortness of breath at rest or shortness of breath with exertion Gastrointestinal Gastrointestinal: Denies abdominal pain, diarrhea, nausea or vomiting Genitourinary Genitourinary: Denies abdominal discomfort Musculoskeletal Musculoskeletal: Denies limited range of motion Integumentary Integumentary: Reports systems reviewed and no addt'l complaints, except as documented Neurologic Neurologic: Reports systems reviewed and no addt'l complaints, except as docume nted Psychiatric Psychiatric: Reports systems reviewed and no addt'l complaints, except as documented Endocrine Endocrinology: Reports systems reviewed and no addt'l complaints, except as documented Hematologic/Lymphatic Hematologic/Lymphatic: Reports systems reviewed and no addt'l complaints, except as documented Allergic/Immunologic Allergic/Immunologic: Reports systems reviewed and no addt'l complaints, except as documented Physical Exam Const alert and oriented x3 General Appearance: cooperative Orientation / Consciousness: awake, oriented to person, oriented to place and oriented to time Exam Limitations: no limitations HEENT normocephalic Head and Scalp: normal to inspection, normocephalic and atraumatic Face and Sinus: normal facial exam Eyes General Eye: normal appearance of both eyes Neck full ROM Chest Chest: symmetrical chest wall rise Resp normal respiratory effort and normal air movement Auscultation: clear to auscultation bilaterally Cardio regular rate, regular rhythm, S1 normal heart sound, S2 normal heart sound, no murmurs, no rub, no gallops and no clicks GI normal to inspection, nondistended, normoactive bowel sounds and non-tender GI Narrative: Dressing dry and intact appearance of the vagina normal Bladder / Kidney Exam: no CVA tenderness Back/Spine normal ROM Extremity normal to inspection and full ROM Skin no rashes or lesions noted Neuro oriented x3, CN's II-XII intact bilaterally and moves all extremities Sensorium / Orientation: awake, alert and oriented to person Motor Exam: clonus absent Deep Tendon Reflexes: Rt Patellar (L4): 2+ and Lt Patellar (L4): 2+ Assessment & Plan (1) Previous delivery affecting , antepartum: (2) Post-operative pain: (3) Delivery by section: (4) Body mass index (BMI) of 40.1 to 44.9 in adult: PLAN: Plan 1) POD #1 2) VSS 3) Pain management 4) I&O, johnson out and urinating 5) ambulation 6) Planning D/C home tomorrow
[2022-07-02] MEDS: NIFEdipine 30 MG Tablet PO (20:12)
[2022-07-02 20:47] LABS: Absolute Lymphocyte Count 1.87 X10^3/uL (0.83-4.51); Absolute Neutrophil Count 8.8 X10^3/uL (2.0-7.7); Basophil# 0.04 X10^3/uL; Basophil% 0.3 % (0-1); Eosinophil# 0.32 X10^3/uL; Eosinophils% 2.8 % (0-5); Hematocrit 33.3 % (37-47); Hemoglobin 10.7 g/dL (12.0-15.0); Lymphocyte # 1.87 X10^3/ul (0.83-4.51); Lymphocyte % 16.1 % (19-41); Mean Corp Hgb Conc 32.1 g/dL (32-36); Mean Corpuscular Hgb 29.2 pg (27.0-32.0); Mean Platelet Vol. 9.5 fl (6.2-12.0); Monocyte# 0.53 X10^3/uL; Monocyte% 4.6 % (0-10); NRBC Flagged by Analyzer 0 % (0-5); Neutrophil # 8.78 X10^3/uL (2.7-7.7); Neutrophil % 75.7 % (47-70); Platelet Count 239 K/mm3 (150-450); Red Blood Count 3.66 M/mm3 (4.2-5.4); White Blood Count 11.6 K/mm3 (4.4-11.0)
[2022-07-02 21:04] LABS: ALB/GLOB Ratio 0.6 RATIO (0.9-2.4); AST(SGOT) 28 U/L (15-37); Alanine Aminotransfer ALT/SGPT 19 U/L (13-56); Albumin, Serum 2.4 g/dL (3.2-5.0); Alkaline Phosphatase 99 U/L (45-117); Anion Gap 3 (5-15); BUN 12 mg/dL (7-18); BUN/Creat Ratio 13.9 RATIO (10-20); Chloride 108 mmol/L (98-107); Creatinine, Serum 0.86 mg/dL (0.55-1.02); EST Glomerular Filtration Rate 83 mL/min (>60); Est Glom Filt Rate - Afr Amer 100 mL/min (>60); Estimated Creatinine Clearance 91.17 ml/min; Globulin 3.9 g/dL (2.2-4.2); Glucose 100 mg/dL (74-106); Protein, Total 6.3 g/dL (6.4-8.2); Sodium Level 138 mmol/L (136-145)
[2022-07-02] MEDS: Hydrocortisone 2.5% Crm 1 APPLIC TOPICAL (21:46)
[2022-07-03] MEDS: Enoxaparin 40 MG/0.4 ML Syringe SC (02:29)
[2022-07-03 02:30] VITALS: BP 136/86; PULSE 77; RESP 16; TEMP 37.1
[2022-07-03] MEDS: Ibuprofen 600 MG Tablet PO ×2 (03:51→10:18)
[2022-07-03] MEDS: Acetaminophen 500 MG Tablet 1000 MG PO (06:13)
[2022-07-03 10:00] VITALS: BP 148/98; PULSE 78; RESP 18; TEMP 36.6; O2SAT 96
--- NOTE | 2022-07-03 10:01 | PCM.PN.OB ---
Subjective Subjective Pain well controlled. Average lochia. No nausea or vomiting. Denies headache or visual changes other than when she sits up she has had a mild headache but this is happened since delivery. Objective Data Objective Data Vital Signs: Vital Signs Temp Pulse Resp BP Pulse Ox O2 Del Method 98.8 F 77 16 136/86 H 97 Room Air 07/03/22 02:30 07/03/22 02:30 07/03/22 02:30 07/03/22 02:30 07/02/22 17:30 07/03/22 02:30 Oxygen Delivery Method Room Air Weight: 113.398 kg Body Mass Index (BMI) 40.3 Intake & Output: Intake and Output for Last 24 Hours 07/01/22 07/02/22 07/03/22 23:59 23:59 23:59 Intake Total 2241.67 / 2241.67 Output Total 1300 / 1300 500 / 500 Balance 941.67 / 941.67 -500 / -500 Lab / Micro Data Result Diagrams: 07/02/22 20:35 07/02/22 20:35 Labs: Laboratory Results - last 24 hr 07/02/22 20:35: WBC 11.6 H, RBC 3.66 L, Hgb 10.7 L, Hct 33.3 L, MCV 91.0, MCH 29.2, MCHC 32.1, RDW Std Deviation 46.0 H, RDW Coeff of Katharine 14.0, Plt Count 239, MPV 9.5, Immature Gran % (Auto) 0.500, Neut % (Auto) 75.7 H, Lymph % (Auto) 16.1 L, [place] % (Auto) 4.6, Eos % (Auto) 2.8, Baso % (Auto) 0.3, Absolute Neuts (auto) 8.8 H, Absolute Lymphs (auto) 1.87, Nucleated RBC % 0 07/02/22 20:35: Sodium 138, Potassium 4.0, Chloride 108 H, Carbon Dioxide 27.0, Anion Gap 3 L, BUN 12, Creatinine 0.86, Estim Creat Clear Calc 91.17, Est GFR (MDRD) Af Amer 100, Est GFR (MDRD) Non-Af 83, BUN/Creatinine Ratio 13.9, Glucose 100, Calcium 9.0, Total Bilirubin 0.20, AST 28, ALT 19, Alkaline Phosphatase 99, Total Protein 6.3 L, Albumin 2.4 L, Globulin 3.9, Albumin/Globulin Ratio 0.6 L Physical Exam Const alert General Appearance: cooperative GI GI Narrative: soft, moderate distention, fundus firm, appropriately tender. Abdominal bandage clean dry and intact Assessment & Plan (1) Delivery by section: PLAN: Postoperative day #2 status post repeat section and bilateral salpingectomy for sterilization. Patient is doing well. Ready for discharge home. Blood pressures are well controlled on Procardia. Discussed with her signs and symptoms of severe preeclampsia to call with and to call if her blood pressures are persistently elevated at home. Patient is comfortable this plan. Follow-up in the office in 2 to 3 days or as needed.
--- NOTE | 2022-07-03 10:02 | DS.PCM_ITS ---
Providers Date of Admission: 07/01/22 Primary Care Physician: Kari Alston, D[employer] OPERATOR-C Reason For Visit: REPEAT Diagnosis Discharge Diagnosis (1) Delivery by section: Status: Acute Plan: Postoperative day #2 status post repeat section and bilateral salpingectomy for sterilization. Patient is doing well. Ready for discharge home. Blood pressures are well controlled on Procardia. Discussed with her signs and symptoms of severe preeclampsia to call with and to call if her blood pressures are persistently elevated at home. Patient is comfortable this plan. Follow-up in the office in 2 to 3 days or as needed. Medications at Discharge Home Medications aspirin 81 mg capsule 81 mg PO DAILY bmi 07/01/22 Hospital Course Operations - (Repeat low transverse section with bilateral salpingectomy) Summary of Care Provided Hospital Course: 26-year-old female admitted for repeat section at 39 weeks gestation and bilateral salpingectomy for sterilization. This was performed on 07/01/2022 without complications. By postoperative day #2 she was ambulating, urinating tolerating regular diet. She had a mild headache which was felt to be spinal headache. Patient stated that it was not severe enough that she was concerned about caring for her at home. She has good help at home. Her blood pressure had been elevated and this happened with her last . She was started on Procardia and they remained in the mild to normal range. Discussed with her signs and symptoms of preeclampsia and when to call or return and patient is comfortable with this as is her . Return to the office in 2 to 3 days for a blood pressure check and to monitor her medication. Patient is comfortable with this plan. Weight / BMI Weight Weight: 113.398 kg Body Mass Index (BMI) 40.3 ABG / Lab / Microbiology Data Result Diagrams: 07/02/22 20:35 07/02/22 20:35 Laboratory: Laboratory Results - last 24 hr 07/02/22 20:35: WBC 11.6 H, RBC 3.66 L, Hgb 10.7 L, Hct 33.3 L, MCV 91.0, MCH 29.2, MCHC 32.1, RDW Std Deviation 46.0 H, RDW Coeff of Katharine 14.0, Plt Count 239, MPV 9.5, Immature Gran % (Auto) 0.500, Neut % (Auto) 75.7 H, Lymph % (Auto) 16.1 L, Bullitt % (Auto) 4.6, Eos % (Auto) 2.8, Baso % (Auto) 0.3, Absolute Neuts (auto) 8.8 H, Absolute Lymphs (auto) 1.87, Nucleated RBC % 0 07/02/22 20:35: Sodium 138, Potassium 4.0, Chloride 108 H, Carbon Dioxide 27.0, Anion Gap 3 L, BUN 12, Creatinine 0.86, Estim Creat Clear Calc 91.17, Est GFR (MDRD) Af Amer 100, Est GFR (MDRD) Non-Af 83, BUN/Creatinine Ratio 13.9, Glucose 100, Calcium 9.0, Total Bilirubin 0.20, AST 28, ALT 19, Alkaline Phosphatase 99, Total Protein 6.3 L, Albumin 2.4 L, Globulin 3.9, Albumin/Globulin Ratio 0.6 L Discharge Plan Admission Admit Date/Time: 07/01/22 09:30 Attending Provider: Leslie Giron Primary Care Provider: Kari Alston Discharge Orders/Prescriptions Prescriptions: No Action aspirin 81 mg Capsule 81 mg PO DAILY Referrals / Follow Up: Kari Alston, D[employer] OPERATOR-C [Primary Care Provider] -
[2022-07-03] MEDS: Senna/Docusate Sodium 1 Tablet PO (10:18)
[2022-07-03] MEDS: NIFEdipine 30 MG Tablet PO (10:19)
[2022-07-03 11:31] VITALS: BP 142/82; PULSE 76; RESP 18
[2022-07-03 12:00] VITALS: BP 123/79
== END 2022-07-03 12:05 | disposition home or self-care (01) | DRG 785 ==
PROVIDERS: Advanced Practice Midwife; Admitting Provider Obstetrics & Gynecology; PCP Nurse Practitioner Family; Visit Provider Obstetrics & Gynecology
PROC: 10D00Z1 Extraction of Products of Conception, Low, Open Approach (ICD-10-PCS; CPT 59514; principal; 2022-07-01 11:45)
DX: O34.211 Maternal care for low transverse scar from previous cesarean delivery (principal); F17.210 Nicotine dependence, cigarettes, uncomplicated; Z86.16 Personal history of COVID-19; O99.213 Obesity complicating pregnancy, third trimester; O69.2XX0 Labor and delivery complicated by other cord entanglement, with compression, not applicable or unspecified; O99.334 Smoking (tobacco) complicating childbirth; Z30.2 Encounter for sterilization; Z37.0 Single live birth; Z3A.39 39 weeks gestation of pregnancy
CPT/HCPCS: 59050; 80053; 85025; 85027; 85461; 86780; 86850; 86900; 86901; 88302; 88307; 99221; J7120; A4216; G0378; J2405; J2790